=== PATIENT | male | born 1995 | race Caucasian/White ===

== ENCOUNTER 2016-10-05 15:44 | Emergency (ER) | payer OTHER ==
[~2016-10-05] VITALS: Ht 188 cm; Wt 117.9 kg
[2016-10-05 15:59] VITALS: BP 130/90
== END 2016-10-05 16:29 | disposition home or self-care (01) ==
LOC: ER 15:47
DX: T21.02XA Burn of unspecified degree of abdominal wall, initial encounter (principal); T23.021A Burn of unspecified degree of single right finger (nail) except thumb, initial encounter; F17.200 Nicotine dependence, unspecified, uncomplicated; X12.XXXA Contact with other hot fluids, initial encounter; Y93.89 Activity, other specified; Y92.89 Other specified places as the place of occurrence of the external cause; Y99.9 Unspecified external cause status
CPT/HCPCS: 99281; A4606; Z7610; Z7502